=== PATIENT | female | born 1975 | race Caucasian/White ===

== ENCOUNTER 2017-10-03 18:00 | Outpatient (CLI) | payer BC | END 2017-10-03 18:01 | disposition home or self-care (01) | LOC: SLEEPLAB 18:00 | PROVIDERS: ATTEND Family Medicine | DX: G47.33 Obstructive sleep apnea (adult) (pediatric) (principal); G47.00 Insomnia, unspecified; R06.83 Snoring; E66.9 Obesity, unspecified; Z68.41 Body mass index [BMI] 40.0-44.9, adult | CPT/HCPCS: 95806 ==

== ENCOUNTER 2018-01-21 14:56 | Outpatient (CLI) | payer BC | END 2018-01-21 14:57 | disposition home or self-care (01) | LOC: DTY/OP 14:56 | PROVIDERS: ATTEND Surgery | DX: E66.01 Morbid (severe) obesity due to excess calories (principal); G47.30 Sleep apnea, unspecified | CPT/HCPCS: 97802 ==

== ENCOUNTER 2018-03-24 16:00 | Inpatient (IN) | payer BC ==
[2018-03-24 16:40] VITALS: BMI 41.1
[2018-03-27] MEDS ORDERED: Fentanyl 100 MCG/2 ML VIAL ONE (07:13)
[2018-03-27] MEDS ORDERED: CEFAZOLIN 2 GM/50 ML BAG ONE (08:06)
[2018-03-27] MEDS ORDERED: Heparin 5,000 UNITS/ML VIAL ONE (08:06)
[2018-03-27] MEDS ORDERED: Bupivacaine/Epinephrine 0.25% 30 ML VIAL ONE (08:53)
[2018-03-27] MEDS ORDERED: Promethazine HCl 25 MG/ML VIAL IM PRN ×3 (09:53→13:21)
[2018-03-27] MEDS ORDERED: Ondansetron HCl/PF 4 MG/2 ML Vial IVP PRN (09:53)
[2018-03-27] MEDS ORDERED: Promethazine HCl 25 MG/ML VIAL SLOW IVP PRN (09:53)
[2018-03-27] MEDS ORDERED: Ketorolac Tromethamine 30 MG/ML VIAL ONE (10:26)
[2018-03-27] MEDS ORDERED: Ondansetron PF 4 MG/2 ML Vial ONE ×2 (10:26→11:27)
[2018-03-27] MEDS ORDERED: Glycopyrrolate 0.2 MG/ML 5 ML SYRINGE ONE (10:26)
[2018-03-27] MEDS ORDERED: PROPOFOL 200 MG/20 ML VIAL ONE (10:26)
[2018-03-27] MEDS ORDERED: Dexamethasone 20 MG/5 ML VIAL ONE (10:26)
[2018-03-27] MEDS ORDERED: Lidocaine 1% PF 5 ML VIAL ONE (10:26)
[2018-03-27] MEDS ORDERED: Promethazine HCl 25 MG/ML VIAL ONE (10:45)
[2018-03-27] MEDS ORDERED: Ondansetron PF 4 MG/2 ML Vial IVP PRN ×2 (10:57→13:21)
[2018-03-27] MEDS ORDERED: Zolpidem Tartrate 5 MG TAB PO PRN (10:57)
[2018-03-27] MEDS ORDERED: Naloxone HCl 0.4 mg/ml Vial IV PRN (10:57)
[2018-03-27] MEDS ORDERED: diphenhydrAMINE 50 MG/ML VIAL IM PRN (10:57)
[2018-03-27] MEDS ORDERED: diphenhydrAMINE 25 MG CAP PO PRN (10:57)
[2018-03-27] MEDS ORDERED: fentaNYL Citrate/PF 2,000 MCG in Sodium Chloride 0.9% 60 ML IV PRN (10:57)
[2018-03-27] MEDS ORDERED: D5 1/2 NS w/20 mEq KCL 1,000 ML ONE (10:57)
[2018-03-27] MEDS ORDERED: diphenhydrAMINE 50 MG/ML VIAL IVP PRN ×2 (10:57→13:21)
--- NOTE | 2018-03-27 10:58 | OP ---
DATE OF PROCEDURE: 03/27/2018 PREOPERATIVE DIAGNOSES: Morbid obesity, obstructive sleep apnea, mixed hyperlipidemia, body mass ind ex of 41. POSTOPERATIVE DIAGNOSES: Morbid obesity, obstructive sleep apnea, mixed hyperlipidemia, body mass in dex of 41 plus hiatal hernia. PROCEDURES PERFORMED: 1. Laparoscopic hiatal hernia with [place] staple line reinforcements and 38 [place] bougie. 2. Hiatal hernia repair without fundoplication or mesh. SURGEON: Devon Garvey M.D. ANESTHESIA: General. ESTIMATED BLOOD LOSS: 20 mL COMPLICATIONS: None. FINDINGS: Normal postoperative EGD. TECHNIQUE: The patient was taken to the operating room and placed supine on the table. After genera l anesthetic was obtained, arms and legs were double strapped to bariatric table. The abdomen was pr epped and draped in a sterile fashion. Left subcostal 5 mm Optiview trocar was placed in the usual f ashion without injury and high flow pneumoperitoneum was obtained. Left and right abdominal 12-mm po rts as well as a right subcostal 5 mm port were placed under direct visualization. The 5 mm port wer e made at the xiphoid and Adolfo retractor was used to raise the liver off the GE junction. She h as a hiatal hernia. Short gastrics were taken down to a distance of 5 cm proximal to the pylorus all the way up to the angle of His. The angle of His, left conchita, posterior fundus was all completely di ssected off the diaphragm revealing a hiatal hernia. A posterior window is made. The mediastinum is entered on the left and circumferential dissection of the esophagus was performed. The bare areas e ntered and the right conchita found and circumferential dissection is finished bringing the GE junction a nd fundus back into the abdominal cavity. A 38 bougie was brought in and its tip left in the antrum of the stomach. Multiple loads and [place] stapling device was used to form the sleeve. The first i s a green load fired up at a distance of 6 cm proximal to the pylorus angled up towards the incisura. Multiple loads were fired up along the bougie, stomach is completely transected at the angle of His . The stomach was removed from left abdominal incision. This fascial defect was closed using Gra[place] needle 0 Vicryl tie. There is no bleeding on the staple line. One suture in the tie knot system wa s used to close the fascial defect posteriorly. All port sites were infiltrated using local anesthet ic. The Adolfo retractor was removed under direct visualization without damage. All ports were r emoved under direct visualization without injury. Pneumoperitoneum was let down. The Vicryl was use d to close the fascial defect from the left abdominal incisions. All incisions were irrigated and cl osed using 4-0 Monocryl and Dermabond. The patient is in en route to recovery in stable condition. All instrument counts, needle counts, lap counts were correct.
[2018-03-27] MEDS ORDERED: Communication Order-Pharmacy FS SCH (11:00)
[2018-03-27] MEDS ORDERED: traZODone HCl 50 MG TAB PO PRN (13:21)
[2018-03-27] MEDS ORDERED: hydrALAZINE 20 MG/ML VIAL SLOW IVP PRN (13:21)
[2018-03-27] MEDS ORDERED: Hydrocodone-Acetamin 15 ML UDCUP PO PRN (13:21)
[2018-03-27] MEDS ORDERED: Dextrose 50% Abboject 50 ML SYRINGE SLOW IVP PRN (13:21)
[2018-03-27] MEDS ORDERED: Dextrose 5% in Water 1,000 ML IV PRN (13:21)
[2018-03-27] MEDS ORDERED: Acetaminophen 1,000 MG in Premix Bag 1 BAG IVPB SCH (14:00)
[2018-03-27] MEDS: D5 1/2 NS w/20 mEq KCL 1,000 ML IV SCH ×2 (19:21→21:36)
[2018-03-27] MEDS ORDERED: Enoxaparin Sodium 40 MG/0.4 ML SYRINGE SC SCH (21:00)
[2018-03-27] MEDS: Acetaminophen 1,000 MG in Premix Bag 1 BAG IVPB SCH (23:12)
[2018-03-28] MEDS: Acetaminophen 1,000 MG in Premix Bag 1 BAG IVPB SCH (05:47)
[2018-03-28 05:55] LABS: #Lymphocytes 1.5 thou/uL (1.20-3.40); #Monocytes 0.9 thou/uL (0.11-0.59); #Neutrophils 10.1 thou/uL (1.40-6.50); %Basophils 0.3 % (0.0-1.0); %Eosinophils 0.1 % (0.0-10.0); %Monocytes 6.9 % (0.0-10.0); %Neutrophils 80.7 % (42.0-75.0); Hemoglobin 12.8 g/dL (12.0-16.0); Mean Corpuscular HGB CONC 31.9 g/dL (32.0-36.0); Mean Corpuscular Hemoglobin 31.2 pg (27.0-31.0); Mean Corpuscular Volume 97.6 fL (78.0-98.0); Mean Platelet Volume 8.3 fL (7.4-10.4); Platelet Count 364 thou/uL (130-400); RBC Distribution Width 11.7 % (11.5-14.5); Red Blood Cell (RBC) Count 4.12 mill/uL (4.20-5.40); White Blood Cell (WBC) Count 12.5 thou/uL (4.8-10.8)
[2018-03-28] MEDS ORDERED: Levothyroxine Sodium 50 MCG TAB PO SCH (06:00)
[2018-03-28 06:12] LABS: Anion Gap 12 mmol/L (10-20); BUN (Urea Nitrogen) 6 mg/dL (7.0-18.7); Calc. Creatinine Clearance 174 mL/min (70-130); Calcium 8.9 mg/dL (7.8-10.44); Carbon Dioxide 25 mmol/L (22-29); Chloride 106 mmol/L (98-107); Estimated GFR-MDRD 79; Glucose 111 mg/dL (70-105); Potassium 3.8 mmol/L (3.5-5.1); Sodium 139 mmol/L (136-145)
[2018-03-28 07:34] VITALS: BP 112/58; TEMP 98.2
[2018-03-28] MEDS ORDERED: Pantoprazole 40 MG VIAL IVP SCH (09:00)
--- NOTE | 2018-03-28 09:45 | DIS ---
DATE OF ADMISSION: 03/27/2018 DATE OF DISCHARGE: 03/28/2018 ADMIT DIAGNOSIS: Morbid obesity. DISCHARGE DIAGNOSIS: Morbid obesity. PROCEDURES: Laparoscopic sleeve by Dr. Garvey without complication. CONDITION AT DISCHARGE: Improved. STAFF: Dr. Devon Garvey. HOSPITAL COURSE: On postop day 1, the patient is doing well. She is tolerating the clear liquids. She is ambulatory. Her vital signs are stable. Her abdomen is soft. Her wounds are healing well. She is being discharged home. Prescriptions given for Lortab elixir, Zofran and pantoprazole at home . She will follow up with me in 2 weeks.
== END 2018-03-28 10:50 | disposition home or self-care (01) | DRG 621 ==
LOC: SURG A 03-27 06:50
PROVIDERS: ADMIT Surgery; ATTEND Surgery
PROC: 0BQT4ZZ Repair Diaphragm, Percutaneous Endoscopic Approach (ICD-10-PCS; principal; 2018-03-27)
PROC: 0DB64Z3 Excision of Stomach, Percutaneous Endoscopic Approach, Vertical (ICD-10-PCS; 2018-03-27)
PROC: 0DJ08ZZ Inspection of Upper Intestinal Tract, Via Natural or Artificial Opening Endoscopic (ICD-10-PCS; 2018-03-27)
DX: E66.01 Morbid (severe) obesity due to excess calories (principal); Z01.818 Encounter for other preprocedural examination; R94.31 Abnormal electrocardiogram [ECG] [EKG]; Z68.41 Body mass index [BMI] 40.0-44.9, adult; G47.33 Obstructive sleep apnea (adult) (pediatric); E78.2 Mixed hyperlipidemia; K44.9 Diaphragmatic hernia without obstruction or gangrene; E28.2 Polycystic ovarian syndrome
CPT/HCPCS: 36415; 71046; 80048; 80053; 80076; 83036; 85025; 88307; 88312; 93005; 93010; 94760; C9113; J0131; J1644; J1650; J2405; J2550; J3010; J7050

== ENCOUNTER 2018-03-24 16:11 | Outpatient (CLI) | payer BC ==
[2018-03-24 17:12] LABS: Hemoglobin A1c 5.2 % (4.0-6.0)
--- NOTE | 2018-03-24 17:20 | RAD ---
CHEST TWO VIEWS: HISTORY: Preop. COMPARISON: None. FINDINGS: The cardiac silhouette and pulmonary vasculature are unremarkable. The mediastinum is midline. No c onfluent air space consolidation, pneumothorax, or pleural fluid is apparent. IMPRESSION: No active cardiopulmonary abnormalities are demonstrated. POS: [facility]
[2018-03-24 17:22] LABS: ALT (SGPT) 46 U/L (8-55); AST (SGOT) 30 U/L (5-34); Albumin 4.5 g/dL (3.5-5.0); Alkaline Phosphatase 65 U/L (40-150); Anion Gap 12 mmol/L (10-20); BUN (Urea Nitrogen) 16 mg/dL (7.0-18.7); Bilirubin, Direct 0.1 mg/dL (0.1-0.3); Bilirubin, Total 0.3 mg/dL (0.2-1.2); Calc. Creatinine Clearance 0 mL/min (70-130); Calcium 9.8 mg/dL (7.8-10.44); Carbon Dioxide 27 mmol/L (22-29); Chloride 102 mmol/L (98-107); Estimated GFR-MDRD 76; Globulin 2.7 g/dL (2.4-3.5); Glucose 92 mg/dL (70-105); Potassium 3.9 mmol/L (3.5-5.1); Protein, Total 7.2 g/dL (6.0-8.3); Sodium 137 mmol/L (136-145)
[2018-03-24 19:39] LABS: #Basophils 0.1 thou/uL (0.0-0.2); #Eosinphils 0.4 thou/uL (0.0-0.7); #Lymphocytes 3.3 thou/uL (1.20-3.40); #Monocytes 0.6 thou/uL (0.11-0.59); #Neutrophils 5.3 thou/uL (1.40-6.50); %Basophils 1.4 % (0.0-1.0); %Eosinophils 3.9 % (0.0-10.0); %Lymphocytes 34.1 % (21.0-51.0); %Monocytes 6.4 % (0.0-10.0); %Neutrophils 54.3 % (42.0-75.0); Hemoglobin 13.3 g/dL (12.0-16.0); Mean Corpuscular HGB CONC 32.6 g/dL (32.0-36.0); Mean Corpuscular Hemoglobin 31.3 pg (27.0-31.0); Mean Corpuscular Volume 96.2 fL (78.0-98.0); Platelet Count 375 thou/uL (130-400); RBC Distribution Width 11.8 % (11.5-14.5); Red Blood Cell (RBC) Count 4.23 mill/uL (4.20-5.40); White Blood Cell (WBC) Count 9.7 thou/uL (4.8-10.8)
--- NOTE | 2018-03-25 07:39 | EKG ---
Test Reason : Blood Pressure : / mmHG Vent. Rate : 086 BPM Atrial Rate : 086 BPM P-R Int : 170 ms QRS Dur : 086 ms QT Int : 382 ms P-R-T Axes : 048 087 029 degrees QTc Int : 457 ms Normal sinus rhythm Cannot rule out Anterior infarct , age undetermined changes possibly from lead misposition suggest re peat Abnormal ECG No previous ECGs available Confirmed by DR. Ronaldo SAXENA ([id number]) on 03/25/2018 7:39:15 AM Referred By: ELLIOT Confirmed By:DR. Ronaldo SAXENA
== END 2018-03-24 16:12 | disposition home or self-care (01) ==
LOC: LABBT 16:11
PROVIDERS: ATTEND Surgery
DX: Z01.818 Encounter for other preprocedural examination (principal); E66.01 Morbid (severe) obesity due to excess calories; R94.31 Abnormal electrocardiogram [ECG] [EKG]
CPT/HCPCS: 71046; 80053; 80076; 83036; 85025; 93005; 93010